=== PATIENT | female | born 1980 | race Caucasian/White ===

== ENCOUNTER 2021-06-04 04:13 | Day surgery (SDC) | payer OTHER ==
[2021-06-02 17:23] VITALS: BMI 24.6
[2021-06-04] MEDS ORDERED: MIDAZOLAM HCL 2 MG/2 ML SINGLE DOSE VIAL ONE (08:47)
[2021-06-04] MEDS ORDERED: PROPOFOL 20 ML ONE (08:48)
[2021-06-04] MEDS ORDERED: ROCURONIUM BROMIDE 50 MG/5 ML SYRINGE ONE (08:48)
[2021-06-04] MEDS ORDERED: LIDOCAINE HCL/PF 2% SDV 5ML VIAL ONE (08:49)
[2021-06-04] MEDS ORDERED: ONDANSETRON 4 MG/2 ML VIAL IVPUSH PRN (09:07)
[2021-06-04] MEDS ORDERED: oxyCODONE HCL 5 MG TABLET PO PRN ×2 (09:07)
[2021-06-04] MEDS ORDERED: ACETAMINOPHEN INJECTION 100 ML IVPB ONE (09:11)
[2021-06-04] MEDS ORDERED: LACTATED RINGERS SOLUTION 1,000 ML IV SCH (09:15)
[2021-06-04] MEDS ORDERED: cefOXitin SODIUM 2 GM VIAL (RESTRICTED TO ID) IVPB ONE ×2 (09:39→09:50)
[2021-06-04] MEDS ORDERED: BUPIVACAINE HCL/PF 0.5% (5MG/ML) 10 ML VIAL ONE (09:40)
[2021-06-04] MEDS ORDERED: NEOSTIGMINE METHYLSULFATE 0.5 MG/ML - 10 ML MDV ONE (10:21)
[2021-06-04] MEDS ORDERED: GLYCOPYRROLATE 0.2 MG/1 ML VIAL ONE (10:21)
[2021-06-04] MEDS ORDERED: DEXAMETHASONE SOD PHOSPHATE 4 MG/1 ML VIAL ONE (10:21)
[2021-06-04] MEDS ORDERED: KETOROLAC TROMETHAMINE 30 MG/1 ML VIAL ONE (10:21)
[2021-06-04] MEDS ORDERED: IOHEXOL 300 MG/ML INFUS..BTL IV ONE (10:42)
[2021-06-04] MEDS ORDERED: BUPIVACAINE HCL/PF 0.5% (5MG/ML) 10 ML VIAL IJ ONE (11:25)
[2021-06-04] MEDS ORDERED: HYDROmorphone HCl 2 MG/ML VIAL ONE (12:54)
[2021-06-04] MEDS ORDERED: HYDROmorphone HCl 2 MG/ML VIAL IVPB ONE (13:45)
[2021-06-04] MEDS ORDERED: oxyCODONE HCL 5 MG TABLET PO ONE ×2 (14:30→15:00)
[2021-06-04] MEDS ORDERED: oxyCODONE HCL 5 MG TABLET ONE ×2 (14:30→14:52)
[2021-06-04 17:30] VITALS: BP 118/70; PULSE 85; TEMP 97.8
== END 2021-06-04 17:42 | disposition home or self-care (01) ==
LOC: JASU-SURG 04:13
PROVIDERS: ATTEND Surgery
PROC: 0FT44ZZ Resection of Gallbladder, Percutaneous Endoscopic Approach (ICD-10-PCS; principal; 2021-06-04 09:30)
PROC: BF03YZZ Plain Radiography of Gallbladder and Bile Ducts using Other Contrast (ICD-10-PCS; 2021-06-04 09:30)
DX: K80.20 Calculus of gallbladder without cholecystitis without obstruction (principal)
CPT/HCPCS: 76000-TC-FY; 81025; 88304-TC; 94760